=== PATIENT | female | born 1985 | race Caucasian/White ===

== ENCOUNTER 2021-03-04 08:20 | Inpatient (IN) | payer OTHER, SELFPAY ==
[2021-03-03 23:36] VITALS: TEMP 36.7; O2SAT 98
[2021-03-03 23:37] VITALS: BP 113/72; PULSE 96
[2021-03-04] VITALS (113 sets, daily range): BP systolic 63–122; BP diastolic 36–81; PULSE 81–151; RESP 16–18; TEMP 36.3–37.8; O2SAT 95–100; BMI 31.2
[2021-03-04] MEDS: 0.9% Saline Lock 10 ML Syringe IV (01:30)
[2021-03-04] MEDS: Lactated Ringers 500 ML 999 ML IV ×2 (08:30→19:42)
[2021-03-04 08:55] LABS: Absolute Lymphocyte Count 2.29 X10^3/uL (0.83-4.51); Absolute Neutrophil Count 9.8 X10^3/uL (2.0-7.7); Basophil# 0.05 X10^3/uL; Basophil% 0.4 % (0-1); Eosinophil# 0.13 X10^3/uL; Hematocrit 37.7 % (37-47); Hemoglobin 12.2 g/dL (12.0-15.0); Lymphocyte # 2.29 X10^3/ul (4.0); Lymphocyte % 17.2 % (19-41); Mean Corp Hgb Conc 32.4 g/dL (32-36); Mean Corpuscular Volume 95.9 fL (81-99); Mean Platelet Vol. 12.1 fl (6.2-12.0); Monocyte# 0.91 X10^3/uL; Monocyte% 6.8 % (0-10); NRBC Flagged by Analyzer 0 % (0-5); Neutrophil # 9.81 X10^3/uL (2.7-7.7); Neutrophil % 73.8 % (47-70); Platelet Count 192 K/mm3 (150-450); RBC Distribution Width CV 13.4 % (11.6-14.6); RBC Distribution Width SD 47.5 fl (35.1-43.9); Red Blood Count 3.93 M/mm3 (4.2-5.4); White Blood Count 13.3 K/mm3 (4.4-11.0)
[2021-03-04] MEDS: Lactated Ringers 1,000 ML 50 ML IV ×2 (09:00→10:25)
[2021-03-04] MEDS: fentaNYL-bupivacaine (epidural) 100 ML BAG EPIDURAL ×3 (09:26→19:23)
--- NOTE | 2021-03-04 11:52 | HP.PCM_ITS ---
- Problem List (1) 37 weeks gestation of Status: Acute (2) Active labor at term Status: Acute (3) Primiparous Status: Acute History Date of Admission: 03/04/21 Final JORDY: 03/19/21 Gestational age: 37 Weeks and 6 Days History of this : This is a 35 year-old at 37w6d in labor after membrane sweep. She presen j carlos to the office yesterday and was 5-6 cm dilated. Membrane sweep was performed per patient request by another provider. The patient then presented overnight with some bleeding and irregular contractions. She is now 7 cm dilated. Medical History: Medical History (Last Updated 03/04/21 @ 11:[address] Loly Pierson, DO) History of herpes genitalis Z86.19 Allergies No Known Allergies Allergy (Verified 03/04/21 00:05) Home Medications: Home Medications Acyclovir 400 mg PO DAILY 03/04/21 Vits [Prenatabs FA] 1 tablet PO DAILY 03/04/21 Smoking Status: Never smoker Number of Fetus(es): 1 NST - FHR Rate Baby A FHR Category:: Category I Uterine Activity:: Irregular ctx's History Past Pregnancies: Past Pregnancies Delivery Date Name GA/ Weeks Outcome Route Wt Sex Labor Length Anesthesia Delivery Location Provider FOB Labs: See [facility] records Expected Infant Delivery Method: Spontaneous Vaginal Physical Exam Vitals: Vital Signs Temp Pulse BP Pulse Ox 97.9 F 127 H 111/57 L 100 03/04/21 11:40 03/04/21 11:39 03/04/21 11:39 03/04/21 10:44 General: Alert, No apparent distress Abdomen: Gravid Extremities:: No edema Neurological: Neuro grossly intact DATA COLLECTION SPECIALIST: Normal external genitalia - no HSV lesions Estimated gestational size: Appropriate for gestational size Presentation: Cephalic Cervix Dilation (cm): 7 Station: 0 Effacement (%): 90 Assessment/Plan All Active Problems 37 weeks gestation of (Acute) Active labor at term (Acute) Primiparous (Acute) This is a 35 year-old, G 1, P 0, at 37 weeks gestational age who is admitted for labor. Cvx changed from 6 cm to 7 cm. - Routine intrapartum care - Epidural for pain control - GBS negative - AROM performed for clear fluid - H/o HSV: Has been on suppression with Acyclovir. No HSV lesions noted and no prodromal symptoms - Covid test - Pelvis adequate and EFW expected to be less than 4500 g. Anticipate vaginal delivery
--- NOTE | 2021-03-04 12:52 | PCM.PN.BLA ---
Progress Note Cvx /0. Regular ctx's not noted with the [facility]. Will start pitocin for augmentation. STROKE Vital Signs/Narrative: Vital Signs Temp Pulse BP Pulse Ox 03/04/21 12:47 97.6 F L 03/04/21 12:40 109 H 110/64 03/04/21 12:26 111 H 114/69 03/04/21 12:09 116 H 111/68 03/04/21 11:55 96 105/61 03/04/21 11:52 107 H 100 03/04/21 11:40 97.9 F 03/04/21 11:39 127 H 111/57 L 03/04/21 11:28 120 H 96/55 L 03/04/21 11:19 118 H 97/53 L 03/04/21 11:08 101 H 101/55 L 03/04/21 11:02 107 H 97/58 L 03/04/21 10:56 93 94/57 L 03/04/21 10:54 111 H 90/50 L 03/04/21 10:52 122 H 90/55 L 03/04/21 10:50 112 H 97/56 L 03/04/21 10:49 97.4 F L 110 H 102/56 L 03/04/21 10:46 114 H 85/54 L 03/04/21 10:45 105 H 73/36 L 03/04/21 10:44 115 H 100 03/04/21 10:42 122 H 97/56 L 03/04/21 10:40 99 101/59 L 03/04/21 10:39 120 H 100 03/04/21 10:38 109 H 101/58 L 03/04/21 10:36 115 H 92/56 L 03/04/21 10:34 124 H 93/57 L 100 03/04/21 10:33 118 H 97/55 L 03/04/21 10:30 130 H 85/52 L 03/04/21 10:29 117 H 100 03/04/21 10:28 118 H 94/55 L 03/04/21 10:26 100 97/57 L 03/04/21 10:25 113 H 91/54 L 03/04/21 10:24 100 03/04/21 10:22 115 H 100/59 L 03/04/21 10:21 96 96/57 L 03/04/21 10:19 91 100 03/04/21 10:18 115 H 70/43 L 03/04/21 10:17 146 H 95/50 L 03/04/21 10:14 99 113/65 100 03/04/21 10:12 131 H 87/47 L 03/04/21 10:10 117 H 94/50 L 03/04/21 10:09 100 03/04/21 10:08 93 100/57 L 03/04/21 10:06 88 99/54 L 03/04/21 10:04 121 H 96/52 L 100 03/04/21 10:02 106 H 102/55 L 03/04/21 10:00 109 H 100/58 L 03/04/21 09:59 100 03/04/21 09:58 121 H 98/56 L 03/04/21 09:56 108 H 103/55 L 03/04/21 09:54 125 H 93/55 L 100 03/04/21 09:52 112 H 99/57 L 03/04/21 09:50 82 103/59 L 03/04/21 09:49 100 03/04/21 09:48 115 H 100/53 L 03/04/21 09:47 111 H 63/41 L 03/04/21 09:46 123 H 66/39 L 03/04/21 09:44 127 H 87/49 L 100 03/04/21 09:42 117 H 98/55 L 03/04/21 09:41 118 H 79/44 L 03/04/21 09:40 130 H 83/44 L 03/04/21 09:39 100 03/04/21 09:37 113 H 103/55 L 03/04/21 09:36 108 H 108/62 03/04/21 09:34 93 100 03/04/21 09:33 90 104/58 L 03/04/21 09:31 109 H 95/58 L 03/04/21 09:29 104 H 93/54 L 99 03/04/21 09:27 108 H 67/37 L 03/04/21 09:26 122 H 71/42 L 03/04/21 09:24 125 H 114/75 100 03/04/21 09:23 97.7 F L 03/04/21 09:19 93 122/78 H 98 03/04/21 09:14 91 116/80 99 03/04/21 09:09 128 H 116/79 100 03/04/21 09:04 102 H 122/78 H 99
[2021-03-04] MEDS: Oxytocin 30 units/NS 500 ml 30 UNITS/500 ML IV.SOLN IV (13:39)
--- NOTE | 2021-03-04 16:23 | PCM.PN.BLA ---
Progress Note At bedside to check on pt. Comfortable with epidural. Cvx 10/100/0. Good pushing effort. Moderate variable. Occasional variable deceleration with pushing. Anticipate vaginal delivery. STROKE Vital Signs/Narrative: Vital Signs Temp Pulse BP Pulse Ox 03/04/21 15:32 99.5 F H 03/04/21 15:22 119 H 100 03/04/21 15:21 137 H 101/57 L 03/04/21 15:17 99.5 F H 03/04/21 15:11 98.8 F 03/04/21 14:00 117 H 109/57 L 99 03/04/21 13:56 98.0 F 03/04/21 13:35 100 03/04/21 13:34 113 H 115/65 03/04/21 13:31 99.5 F H 03/04/21 12:47 97.6 F L 03/04/21 12:40 109 H 110/64 03/04/21 12:26 111 H 114/69
[2021-03-04] MEDS: Lactated Ringers 1,000 ML 200 ML IV (19:23)
[2021-03-04] MEDS: Sodium Citrate/Citric Acid 30 ML UDC PO (20:36)
--- NOTE | 2021-03-04 20:41 | PCM.PN.BLA ---
Progress Note At bedside to evaluate patient. Cvx 10/100/0. Recommend section for arrest of descent. Discussed risks, benefits, alternatives to a section and patient desires to proceed. Obtained consent. STROKE Vital Signs/Narrative: Vital Signs Temp Pulse BP Pulse Ox 03/04/21 20:34 101 H 97 03/04/21 20:33 115 H 111/67 03/04/21 20:24 99.0 F 03/04/21 20:09 136 H 100 03/04/21 20:04 141 H 100 03/04/21 19:59 122 H 100 03/04/21 19:55 125 H 113/56 L 03/04/21 19:54 100 03/04/21 19:49 151 H 100 03/04/21 19:44 149 H 100 03/04/21 19:39 122 H 100 03/04/21 19:32 99.5 F H 03/04/21 18:53 118 H 99 03/04/21 18:21 99.0 F 03/04/21 18:13 100.1 F H 102 H 113/62 98 03/04/21 17:21 98.9 F 88 103/53 L 97 03/04/21 17:09 94 98
[2021-03-04] MEDS: Cefazolin 2 GM in 0.9% Normal Saline 100 ML IV (21:19)
[2021-03-04] MEDS: Ondansetron 4 MG/2 ML Vial IV (21:21)
--- NOTE | 2021-03-04 22:30 | PCM.OPRPT ---
Problem List (1) 37 weeks gestation of Status: Acute (2) Active labor at term Status: Acute (3) Primiparous Status: Acute (4) Arrest of descent, delivered, current hospitalization Status: Acute (5) delivery delivered Status: Acute Report of Operation Date of Procedure: 03/04/21 Pre-Operative Diagnosis: 37 week gestation, primiparous, arrest of descent Post-Operative Diagnosis: As above Surgery/Procedure Performed:: PLTCS via pfannenstiel incision Description of Surgical Findings:: Fibroid uterus. Normal-appearing bilateral tubes and ovaries. Normal appearing placenta. in ELYSIA position. Type of Anesthesia:: Epidural Special Medications: None Specimen's removed: Placenta Drains: Ralph Estimated Blood Loss (mL): 500 Fluids Replaced: 800 Description of Procedure: Indications: The patient presented at 37 weeks gestation at 6 cm dilated after membrane sweep. She progressed to 7 cm dilated. Artificial rupture of membranes was performed and Pitocin was started for augmentation and she progressed to complete. She was complete and pushing for 4 hours without change in station. Unable to perform vacuum-assisted vaginal delivery due to station. section was recommended for arrest of descent. Patient was taken to the operating room where epidural anesthesia was found to be adequate. She was prepped and draped in dorsal position with a leftward tilt. A Pfannenstiel skin incision was made with the scalpel, and this incision was carried down to the underlying layer of fascia. The fascia was incised in the midline. The fascia was extended laterally using Diana scissors. The fascia was dissected off of the rectus muscles using a combination of sharp and blunt dissection. The rectus muscles were midline. The peritoneum was entered bluntly with good visualization of the bladder. The incision was stretched. A low transverse incision was made on the uterus with the scalpel. The uterine incision was extended bluntly. A nurse assisted with a hand in the vagina to gently elevate the head to the hysterotomy. The head was gently elevated to the hysterotomy in a flexed position. The head followed by the shoulders and body of the were delivered without any force or delay. The cord was complete cut immediately. The was handed off to the nursery staff. The uterus was exteriorized. The placenta was removed with manual extraction. The uterus was cleared of all clot and debris. The uterine incision was closed with Vicryl in a running locked fashion. Several additional [id number] sutures were placed for hemostasis. The uterus was placed back in the abdomen. Tanya was placed over the uterine incision. The uterine incision was hemostatic. The peritoneum was closed with Vicryl in a running fashion. The fascia was closed with Stratafix. The subcutaneous space was irrigated and made hemostatic with Bovie cautery. Subcutaneous space was reapproximated with Vicryl. Skin was closed with Monocryl in a subcuticular fashion. Sterile dressing were placed. Instrument, sponge, needle counts were correct and the patient was taken to recovery in stable condition. Grafts/Implants Used: None - Complications None - Admit VTE Documentation VTE Present on Admission: No VTE Mechan Device Prophylaxis: SCD's VTE Pharm Prophylaxis ordered?: Yes Delivery Classification: KRYSTLE Type of Anesthesia:: Epidural Indications for : Arrrest of Descent Amniotic Membrane Rupture Type: Artificial Amniotic Fluid Description: Clear Placenta Disposition: [facility] Drain: Ralph to straight drain Cord Entanglement: None Gender: Female (1 minute): 8 (5 minute): 9 Delayed cord clamping: No Antibiotic Given: Ancef 2 grams IV x1, Zithromax 500 mg/5 mL X1 Pt instructed on risks of surgery: Bleeding, Infection, Injury to surrounding structure(s) including bowel and bladder
[2021-03-04] MEDS: Oxytocin 30 units/NS 500 ml 30 UNITS/500 ML IV.SOLN 167 UNITS IV (22:40)
[2021-03-04] MEDS: Ketorolac 30 MG/ML Syringe IV (22:45)
[2021-03-04] MEDS: Acetaminophen 500 MG Tablet 1000 MG PO (23:54)
[2021-03-05] VITALS (14 sets, daily range): BP systolic 90–120; BP diastolic 50–70; PULSE 69–98; RESP 16–18; TEMP 36.1–37; O2SAT 94–97
[2021-03-05] MEDS: Lactated Ringers 1,000 ML 100 ML IV (01:41)
[2021-03-05 04:51] LABS: Hematocrit 32.5 % (37-47); Hemoglobin 10.8 g/dL (12.0-15.0); Mean Corp Hgb Conc 33.2 g/dL (32-36); Mean Corpuscular Hgb 31.7 pg (27.0-32.0); Mean Corpuscular Volume 95.3 fL (81-99); Mean Platelet Vol. 11.9 fl (6.2-12.0); Platelet Count 165 K/mm3 (150-450); RBC Distribution Width CV 13.5 % (11.6-14.6); RBC Distribution Width SD 46.9 fl (35.1-43.9); Red Blood Count 3.41 M/mm3 (4.2-5.4); White Blood Count 13.8 K/mm3 (4.4-11.0)
[2021-03-05] MEDS: Ketorolac 30 MG/ML Syringe IV ×3 (04:51→16:38)
[2021-03-05] MEDS: 0.9% Saline Lock 10 ML Syringe IV ×3 (04:52→16:40)
--- NOTE | 2021-03-05 04:55 | NURSING ---
Epidural catheter removed. Blue tip intact.
[2021-03-05] MEDS: Acetaminophen 500 MG Tablet 1000 MG PO ×3 (06:28→18:04)
--- NOTE | 2021-03-05 07:22 | CPS ---
Pt has prior knowledge of SMI use. Pt did not have any questions about the SMI when asked.
--- NOTE | 2021-03-05 08:41 | PN.OBGYN_ITS ---
Patient Problems: Active and Suspected Problems (Last Updated 03/04/21 @ 11:[address] Loly Pierson, DO) 37 weeks gestation of (Acute) Active labor at term (Acute) Primiparous (Acute) Arrest of descent, delivered, current hospitalization (Acute) delivery delivered (Acute) Subjective: Patient seen at bedside. Has only been out of bed x1. Pain is being controlled with PO Motrin and Tylenol due to IV coming out and patient declining a new one. She denies any dizziness, SOB, or CP. Bottle feeding . Possible discharge home tomorrow. Objective: Dressing is dry and intact HGB- 12.2-10.8 - Physical Exam Vitals/I&O's: Vital Signs Temp Pulse Resp BP Pulse Ox 97.7 F L 69 16 97/65 96 03/05/21 07:57 03/05/21 07:57 03/05/21 07:57 03/05/21 07:57 03/05/21 07:57 Oxygen Delivery Method Room Air Weight: 211 lb 12.8 oz Body Mass Index (BMI) 31.2 Intake and Output for Last 24 Hours 03/03/21 03/04/21 03/05/21 23:59 23:59 23:59 Intake Total 2573.31 / 2573.31 1003.33 / 1003.33 Output Total 1750 / 1750 700 / 700 Balance 823.31 / 823.31 303.33 / 303.33 General: Alert, Oriented x3, Cooperative HEENT: Atraumatic Oral: Moist Mucosa Neck: Supple Lungs: Normal air movement Cardiovascular: Regular rate Abdomen: Soft, Non-Distended Extremities: No Calf Tenderness - SCD's on patient Skin: No rashes Musculoskeletal: No Tenderness to Palpation of Joints or Extremities Neurological: Cranial nerves II-XII grossly intact Psych/Mental Status: Normal Affect, Appropriate Microbiology Past 72 Hours 03/04/21 08:47 Mucosa - Nose SARS-CoV-2 Antigen (Rapid) - Final Laboratory Results 03/04/21 08:30: WBC 13.3 H, RBC 3.93 L, Hgb 12.2, Hct 37.7, MCV 95.9, MCH 31.0, MCHC 32.4, RDW Std Deviation 47.5 H, RDW Coeff of Robyn 13.4, Plt Count 192, MPV 12.1 H, Immature Gran % (Auto) 0.800, Neut % (Auto) 73.8 H, Lymph % (Auto) 17.2 L, Ross % (Auto) 6.8, Eos % (Auto) 1.0, Baso % (Auto) 0.4, Absolute Neuts (auto) 9.8 H, Absolute Lymphs (auto) 2.29, Nucleated RBC % 0 03/04/21 08:30: Blood Type A POSITIVE, Antibody Screen NEGATIVE 03/05/21 04:34: WBC 13.8 H, RBC 3.41 L, Hgb 10.8 L, Hct 32.5 L, MCV 95.3, MCH 31.7, MCHC 33.2, RDW Std Deviation 46.9 H, RDW Coeff of Robyn 13.5, Plt Count 165, MPV 11.9 Current Medications Acetaminophen (Acetaminophen 500 Mg Tablet) 1,000 mg PO Q6 [facility] Last Admin: 03/05/21 06:28 Dose: 1,000 mg Documented by: Bisacodyl (Bisacodyl 10 Mg Suppository) 10 mg RC UD PRN PRN Reason: If no BM Diphenhydramine HCl (Diphenhydramine 25 Mg Capsule) 25 mg PO Q6H PRN PRN PRN Reason: ITCHING Stop: 03/05/21 22:37 Enoxaparin Sodium (Enoxaparin 40 Mg/0.4 Ml Syringe) 40 mg SC DAILY [facility] Hydrocortisone (Hydrocortisone 2.5% Crm) 1 applic TOPICAL TID PRN PRN; Protocol PRN Reason: Discomfort Lactated Ringer's () 1,000 mls @ 100 mls/hr IV .Q10H [facility] Last Infusion: 03/05/21 04:43 Dose: Infused Documented by: Ibuprofen (Ibuprofen 600 Mg Tablet) 600 mg PO Q6H [facility] Ketorolac Tromethamine (Ketorolac 30 Mg/Ml Syringe) 30 mg IV Q6H [facility]AD[facility] Stop: 03/05/21 22:31 Last Admin: 03/05/21 04:51 Dose: 30 mg Documented by: Methylergonovine Maleate (Methylergonovine 0.2 Mg/Ml Ampul) 0.2 mg IM X1 PRN PRN Reason: Uterine Atony Nalbuphine HCl (Nalbuphine 10 Mg/Ml Ampul) 5 mg IV Q3H PRN PRN PRN Reason: ITCHING Stop: 03/05/21 22:37 Naloxone HCl (Naloxone 0.4 Mg/Ml Syringe) 0.02 mg IV Q1M PRN PRN Reason: RR <10 and pt unresponsive Ondansetron HCl (Ondansetron 4 Mg/2 Ml Vial) 4 mg IV Q4H PRN PRN PRN Reason: Nausea Oxycodone HCl (Oxycodone 5 Mg Tablet) 5 - 10 mg PO Q4H PRN PRN PRN Reason: Pain Score 4-10 Prochlorperazine Edisylate (Prochlorperazine 10 Mg/2 Ml Vial) 10 mg IV Q6H PRN PRN PRN Reason: NAUSEA Senna/Docusate Sodium (Senna/Docusate Sodium 1 Tablet) 0 tablet PO DAILY [facility] Simethicone (Simethicone 80 Mg Tablet) 80 mg PO PCHS PRN PRN Reason: Indigestion/stomach pain Sodium Chloride (0.9% Saline Lock 10 Ml Syringe) 5 - 15 ml IV UD PRN PRN Reason: SALINE FLUSH Last Admin: 03/05/21 04:52 Dose: 10 ml Documented by: Medical Necessity - Tobacco Use Smoking Status: Never smoker Assessment/Plan All Active Problems (Last Updated 03/04/21 @ 11:[address] Loly Pierson, DO) 37 weeks gestation of (Acute) Active labor at term (Acute) Primiparous (Acute) Arrest of descent, delivered, current hospitalization (Acute) delivery delivered (Acute) POD #1 Primary C/S Routine care Pain control Ambulate in room today Anticipate discharge home tomorrow
[2021-03-05] MEDS: Senna/Docusate Sodium 1 Tablet PO (11:19)
[2021-03-05] MEDS: Enoxaparin 40 MG/0.4 ML Syringe SC (11:20)
[2021-03-05] MEDS: Ibuprofen 600 MG Tablet PO (22:13)
[2021-03-05] MEDS: oxyCODONE 5 MG Tablet PO (22:16)
[2021-03-06] MEDS: Acetaminophen 500 MG Tablet 1000 MG PO ×2 (00:07→06:17)
[2021-03-06 01:10] VITALS: BP 95/65; PULSE 85; RESP 16; TEMP 37.2; O2SAT 96
[2021-03-06] MEDS: Ibuprofen 600 MG Tablet PO ×2 (05:11→10:34)
[2021-03-06 08:49] VITALS: BP 106/68; PULSE 72; RESP 16; TEMP 36.1; O2SAT 96
[2021-03-06] MEDS: Senna/Docusate Sodium 1 Tablet PO (10:35)
[2021-03-06] MEDS: Enoxaparin 40 MG/0.4 ML Syringe SC (10:35)
--- NOTE | 2021-03-06 11:29 | PCM.PN.OB ---
Patient Problems: Active and Suspected Problems (Last Updated 03/04/21 @ 11:[address] Loly Pierson, DO) 37 weeks gestation of (Acute) Active labor at term (Acute) Primiparous (Acute) Arrest of descent, delivered, current hospitalization (Acute) delivery delivered (Acute) Subjective: Well per patient nursing staff. Ambulating and taking p.o. without difficulty. Voiding and passing flatus. Complaint of feeling bloated and difficulty passing flatus at times. bottle feeding. Denies headache, visual changes, chest pain, shortness of breath, or increased vaginal bleeding. Lochia normal. Pain controlled. Ending discharge home today. - Physical Exam Vitals/I&O's: Vital Signs Temp Pulse Resp BP Pulse Ox 96.9 F L 72 16 106/68 96 03/06/21 08:49 03/06/21 08:49 03/06/21 08:49 03/06/21 08:49 03/06/21 08:49 Oxygen Delivery Method Room Air Weight: 211 lb 12.8 oz Body Mass Index (BMI) 31.2 Intake and Output for Last 24 Hours 03/04/21 03/05/21 03/06/21 23:59 23:59 23:59 Intake Total 2573.31 / 2573.31 1003.33 / 1003.33 Output Total 1750 / 1750 1100 / 1100 Balance 823.31 / 823.31 -96.67 / -96.67 General: Alert, Oriented x3, Cooperative HEENT: Atraumatic, Normocephalic Neck: Trachea Midline Lungs: Clear to auscultation, Normal air movement, No rhonchi, No wheeze Cardiovascular: Regular rate, Regular Rhythm, No murmurs Abdomen: Soft, Hypoactive Bowel Sounds - Fundus firm 3 below U. Skin dry and intact. Extremities: Edema - +1 bilateral lower extremity, non pitting Psych/Mental Status: Normal Affect, Appropriate Microbiology Past 72 Hours 03/04/21 08:47 Mucosa - Nose SARS-CoV-2 Antigen (Rapid) - Final Current Medications Acetaminophen (Acetaminophen 500 Mg Tablet) 1,000 mg PO Q6 [facility] Last Admin: 03/06/21 06:17 Dose: 1,000 mg Documented by: Bisacodyl (Bisacodyl 10 Mg Suppository) 10 mg RC UD PRN PRN Reason: If no BM Enoxaparin Sodium (Enoxaparin 40 Mg/0.4 Ml Syringe) 40 mg SC DAILY [facility] Last Admin: 03/06/21 10:35 Dose: 40 mg Documented by: Hydrocortisone (Hydrocortisone 2.5% Crm) 1 applic TOPICAL TID PRN PRN; Protocol PRN Reason: Discomfort Ibuprofen (Ibuprofen 600 Mg Tablet) 600 mg PO Q6H [facility] Last Admin: 03/06/21 10:34 Dose: 600 mg Documented by: Methylergonovine Maleate (Methylergonovine 0.2 Mg/Ml Ampul) 0.2 mg IM X1 PRN PRN Reason: Uterine Atony Naloxone HCl (Naloxone 0.4 Mg/Ml Syringe) 0.02 mg IV Q1M PRN PRN Reason: RR <10 and pt unresponsive Ondansetron HCl (Ondansetron 4 Mg/2 Ml Vial) 4 mg IV Q4H PRN PRN PRN Reason: Nausea Oxycodone HCl (Oxycodone 5 Mg Tablet) 5 - 10 mg PO Q4H PRN PRN PRN Reason: Pain Score 4-10 Last Admin: 03/05/21 22:16 Dose: 10 mg Documented by: Prochlorperazine Edisylate (Prochlorperazine 10 Mg/2 Ml Vial) 10 mg IV Q6H PRN PRN PRN Reason: NAUSEA Senna/Docusate Sodium (Senna/Docusate Sodium 1 Tablet) 0 tablet PO DAILY [facility] Last Admin: 03/06/21 10:35 Dose: 1 tablet Documented by: Simethicone (Simethicone 80 Mg Tablet) 80 mg PO [facility] PRN PRN Reason: Indigestion/stomach pain Last Admin: 03/05/21 20:10 Dose: 80 mg Documented by: Sodium Chloride (0.9% Saline Lock 10 Ml Syringe) 5 - 15 ml IV UD PRN PRN Reason: SALINE FLUSH Last Admin: 03/05/21 16:40 Dose: 10 ml Documented by: Medical Necessity - Tobacco Use Smoking Status: Never smoker Assessment/Plan All Active Problems (Last Updated 03/04/21 @ 11:[address] Loly Pierson, DO) 37 weeks gestation of (Acute) Active labor at term (Acute) Primiparous (Acute) Arrest of descent, delivered, current hospitalization (Acute) delivery delivered (Acute) A:POD #2 Low Transverse Section P: 1. Routine postoperative and care. 2. Management, will send prescription for oxycodone to pharmacy. 3. Stool softener and discussed milk of magnesia if needed to produce bowel movement. Increase hydration and ambulation. 4. Discharge home today. 5. Up in 1 week for incision check and 6-week visit.
[2021-03-06 11:50] VITALS: BP 106/68; PULSE 72; RESP 16; TEMP 36.1
--- NOTE | 2021-03-06 11:56 | DCINST_ITS ---
Discharge Diet: No Restrictions Discharge Activity: May Not Drive - for 2 weeks or while taking narcotic pain meds., May Shower, May Take a Tub Bath - in 7 days. May resume sexual activity in: 4-6 weeks Lifting Restrictions: 20 pounds Additional Activity Instructions:: Nothing in the vagina for 4-6 weeks. You may return to work/school in 6 weeks. Call your doctor if your incision/area has: Continuous Slow Oozing, Sudden Increased Bleeding, Increased Pain/ Swelling, Increased Redness, Foul Smelling Discharge Call your doctor if you observe: Fever of 101 or Higher Suture Line Care: Avoid Pulling/Pushing, Avoid Pinching/Bending Additional Instructions: If you experience any of the following, contact your healthcare provider. * Bleeding that soaks a pad every hour for 2 hours * Fever 100.4 or higher * Unrelieved incision or abdominal pain * Swelling, redness, discharge or bleeding from your incision or episiotomy site * Your incision begins to separate * Problems urinating (including inability to urinate or burning while urinating). * Visual changes * Severe headache * Flu-like symptoms * Pain or redness in one of both of your breasts * Pain, warmth, tenderness or swelling in your legs, especially the calf area * Frequent nausea and vomiting * Symptoms of depression or anxiety If you experience any of the following, call 911 or go to the nearest Emergency Room. * Chest pain * Problems breathing * Seizure activity * Partial or complete paralysis of a body part, slurred speech, weakness or drooping of the face, or a sudden inability to walk or hold your balance Oxycodone sent to pharmacy. Allergies/Adverse Reactions: Allergies No Known Allergies Allergy (Verified 03/04/21 00:05) Medications to take at Discharge Acyclovir 400 mg PO DAILY 03/04/21 Vits [Prenatabs FA ] 1 tablet PO DAILY 03/04/21 Senna/Docusate Sodium [Senokot-S] 1 tablet PO DAILY #30 tablet 03/06/21 The following prescriptions were given: Senna/Docusate Sodium [Senokot-S] 1 tablet PO DAILY #30 tablet Transmission Status: Pending to [facility] Follow-Up: Call to make an appointment with your doctor for an incision check in 1-2 weeks. You will also need a 6 week post- follow up appointment. Test results from this visit will be discussed in further detail at your follow- up appointment, if applicable. Please Follow Up With: Loly Pierson DO Primary Care Physician: Care Physician,No Primary [Primary Care Provider] -
--- NOTE | 2021-03-06 12:00 | PCM.DC.SUM ---
Discharge Date and Diagnosis - Problem List Patient Problems: Active and Suspected Problems (Last Updated 03/04/21 @ 11:[address] Loly Pierson DO) 37 weeks gestation of (Acute) Active labor at term (Acute) Primiparous (Acute) Arrest of descent, delivered, current hospitalization (Acute) delivery delivered (Acute) Date of Admission: 03/04/21 - Primary Discharge Diagnosis Acute Problems: Active Problems (Last Updated 03/04/21 @ 11:[address] Loly Pierson DO) 37 weeks gestation of (Acute) Active labor at term (Acute) Primiparous (Acute) Arrest of descent, delivered, current hospitalization (Acute) delivery delivered (Acute) Hospital Course and Treatment Summary of Care Provided: The patient is a 35 year old F [] Patient Problems: Active and Suspected Problems (Last Updated 03/04/21 @ 11:[address] Loly Pierson DO) 37 weeks gestation of (Acute) Active labor at term (Acute) Primiparous (Acute) Arrest of descent, delivered, current hospitalization (Acute) delivery delivered (Acute) - Physical Exam Vitals/I&O's: Vital Signs Temp Pulse Resp BP Pulse Ox 96.9 F L 72 16 106/68 96 03/06/21 08:49 03/06/21 08:49 03/06/21 08:49 03/06/21 08:49 03/06/21 08:49 Oxygen Delivery Method Room Air Weight: 211 lb 12.8 oz Body Mass Index (BMI) 31.2 Intake and Output for Last 24 Hours 03/04/21 03/05/21 03/06/21 23:59 23:59 23:59 Intake Total 2573.31 / 2573.31 1003.33 / 1003.33 Output Total 1750 / 1750 1100 / 1100 Balance 823.31 / 823.31 -96.67 / -96.67 Microbiology Past 72 Hours 03/04/21 08:47 Mucosa - Nose SARS-CoV-2 Antigen (Rapid) - Final Current Medications Acetaminophen (Acetaminophen 500 Mg Tablet) 1,000 mg PO Q6 [facility] Last Admin: 03/06/21 06:17 Dose: 1,000 mg Documented by: Bisacodyl (Bisacodyl 10 Mg Suppository) 10 mg RC UD PRN PRN Reason: If no BM Enoxaparin Sodium (Enoxaparin 40 Mg/0.4 Ml Syringe) 40 mg SC DAILY [facility] Last Admin: 03/06/21 10:35 Dose: 40 mg Documented by: Hydrocortisone (Hydrocortisone 2.5% Crm) 1 applic TOPICAL TID PRN PRN; Protocol PRN Reason: Discomfort Ibuprofen (Ibuprofen 600 Mg Tablet) 600 mg PO Q6H [facility] Last Admin: 03/06/21 10:34 Dose: 600 mg Documented by: Methylergonovine Maleate (Methylergonovine 0.2 Mg/Ml Ampul) 0.2 mg IM X1 PRN PRN Reason: Uterine Atony Naloxone HCl (Naloxone 0.4 Mg/Ml Syringe) 0.02 mg IV Q1M PRN PRN Reason: RR <10 and pt unresponsive Ondansetron HCl (Ondansetron 4 Mg/2 Ml Vial) 4 mg IV Q4H PRN PRN PRN Reason: Nausea Oxycodone HCl (Oxycodone 5 Mg Tablet) 5 - 10 mg PO Q4H PRN PRN PRN Reason: Pain Score 4-10 Last Admin: 03/05/21 22:16 Dose: 10 mg Documented by: Prochlorperazine Edisylate (Prochlorperazine 10 Mg/2 Ml Vial) 10 mg IV Q6H PRN PRN PRN Reason: NAUSEA Senna/Docusate Sodium (Senna/Docusate Sodium 1 Tablet) 0 tablet PO DAILY [facility] Last Admin: 03/06/21 10:35 Dose: 1 tablet Documented by: Simethicone (Simethicone 80 Mg Tablet) 80 mg PO HS PRN PRN Reason: Indigestion/stomach pain Last Admin: 03/05/21 20:10 Dose: 80 mg Documented by: Sodium Chloride (0.9% Saline Lock 10 Ml Syringe) 5 - 15 ml IV UD PRN PRN Reason: SALINE FLUSH Last Admin: 03/05/21 16:40 Dose: 10 ml Documented by: Discharge Diet: No Restrictions Discharge Activity: May Not Drive - for 2 weeks or while taking narcotic pain meds., May Shower, May Take a Tub Bath - in 7 days. May resume sexual activity in: 4-6 weeks Additional Activity Instructions:: Nothing in the vagina for 4-6 weeks. You may return to work/school in 6 weeks. Call your doctor if your incision/area has: Continuous Slow Oozing, Sudden Increased Bleeding, Increased Pain/ Swelling, Increased Redness, Foul Smelling Discharge Call your doctor if you observe: Fever of 101 or Higher Suture Line Care: Avoid Pulling/Pushing, Avoid Pinching/Bending Home Medications: Medications to take at Discharge Acyclovir 400 mg PO DAILY 03/04/21 Vits [Prenatabs FA ] 1 tablet PO DAILY 03/04/21 Senna/Docusate Sodium [Senokot-S] 1 tablet PO DAILY #30 tablet 03/06/21 Following Prescriptions Were Given to Patient: Senna/Docusate Sodium [Senokot-S] 1 tablet PO DAILY #30 tablet Transmission Status: Pending to [facility] Primary Care Physician: Care Physician,No Primary [Primary Care Provider] - Please Follow Up With: Loly Pierson DO Medical Necessity - Tobacco Use Smoking Status: Never smoker
[2021-03-06 12:07] VITALS: BP 106/70; PULSE 90; RESP 16; TEMP 36.3
== END 2021-03-06 12:50 | disposition home or self-care (01) | DRG 787 ==
LOC: WPOUT 08:21 → WP 03-05 08:18
PROVIDERS: Admitting Provider Obstetrics & Gynecology; Visit Provider Obstetrics & Gynecology
DX: O62.1 Secondary uterine inertia (principal); O98.32 Other infections with a predominantly sexual mode of transmission complicating childbirth; D25.9 Leiomyoma of uterus, unspecified; O34.13 Maternal care for benign tumor of corpus uteri, third trimester; A60.00 Herpesviral infection of urogenital system, unspecified; O76 Abnormality in fetal heart rate and rhythm complicating labor and delivery; Z37.0 Single live birth; Z3A.37 37 weeks gestation of pregnancy
CPT/HCPCS: 59025; 59050; 85025; 85027; 86850; 86900; 86901; 87426; 99218; 99251; J7120; A4216; G0378; G0463; J2405; J3490

== ENCOUNTER → 2023-01-29 | Outpatient (CLI) | payer SELFPAY ==
--- NOTE | 2023-01-29 10:41 | RAD_ITS ---
INDICATION: PAIN EXAMINATION/TECHNIQUE: X-RAY - XR Spine Lumbar Min 4 Views COMPARISON: None. FINDINGS: VERTEBRAE: Preserved vertebral body height. No fracture. No spondylolisthesis. Preservation of the normal lumbar lordosis. No significant facet arthropathy. DISCS: Disc spaces are maintained. INCLUDED ABDOMEN: Included bowel gas pattern is non-obstructive. RAD/L/S Spine Min 4 Views IMPRESSION: No evidence of lumbar spinal fracture or spondylolisthesis. Electronically Signed: Jhonatan Aguilera MD at 18:00 EST ,
== END | disposition home or self-care (01) ==
LOC: RAD 10:37
PROVIDERS: Visit Provider Chiropractor Orthopedic
DX: R52 Pain, unspecified (principal)
CPT/HCPCS: 72110